=== PATIENT | female | born 1990 | race Caucasian/White ===

== ENCOUNTER 2022-01-24 09:31 | Day surgery (SDC) | payer OTHER ==
[~2022-01-24] VITALS: Ht 172.7 cm; Wt 71.7 kg
[~2022-01-24 09:31] MED LIST: SYNTHROID100 MCG PO
== END 2022-01-24 19:46 | disposition home or self-care (01) ==
LOC: CIR.AMB 09:31
PROVIDERS: ATTEND Obstetrics & Gynecology
DX: N92.1 Excessive and frequent menstruation with irregular cycle (principal); Q51.828 Other congenital malformations of cervix; E78.00 Pure hypercholesterolemia, unspecified; Z86.16 Personal history of COVID-19; J45.909 Unspecified asthma, uncomplicated; Z20.822 Contact with and (suspected) exposure to COVID-19